=== PATIENT | male | born 1980 | race Caucasian/White ===

== ENCOUNTER → 2017-01-02 | Outpatient (CLI) | payer OTHER ==
[~2017-01-02] VITALS: Ht 172.7 cm; Wt 84.4 kg
[~2017-01-02] MED LIST: CEFAZOLIN 2000 MG/60 ML D5W IV SCH; FEXO1TAB58 PO; IBUP-1050 PO; LACTATED RINGER'S 1000ML 1,000 ML IV SCH; RXC5 PO; ULT50X PO
[2017-01-02 09:24] VITALS: Ht 172.7 cm; Wt 84.4 kg
--- NOTE | 2017-01-02 09:53 | PAT Medication Instructions ---
Service Date Jan 02, 2017. Current Home Medication List Fexofenadine-Pseudoephedrine (Brittany-D 24 Hour Allergy), 1 TAB PO PRN Ibuprofen (Advil), 400-600 MG PO PRN Medication Instructions For Your Scheduled Surgery - Hold the following medications the morning of surgery: Ibuprofen (Advil), 400-600 MG PO PRN Fexofenadine-Pseudoephedrine (Brittany-D 24 Hour Allergy), 1 TAB PO PRN Nothing to eat or drink after midnight If you have any questions please call us at [phone] or [phone] or [phone]
--- NOTE | 2017-01-02 10:43 | DIAGNOSTIC IMAGING REPORT ---
CHEST PREADMISSION(PA/LAT) HISTORY: Preop. COMPARISON: None. FINDINGS: The lungs are clear. Cardiac silhouette is normal in size. No pleural effusions. No pneumothorax. IMPRESSION: No acute process. Electronically signed by: Sushil Vela M.D. 01/02/2017 10:42 AM Dictated Date/Time: 01/02/2017 10:41 AM
[2017-01-02 11:09] LABS: BASO % 1.1 %; BASO ABS # 0.06 K/uL (0-0.2); COMPLETE YES; EOS % 12.6 %; HEMATOCRIT 48.4 % (42-52); IG% 0.2 %; LYMPH ABS # 1.74 K/uL (1.2-3.4); MEAN CELL VOLUME 87.1 fL (80-100); MEAN CORPUSCULAR HGB CONC 34.5 g/dl (32-36); MEAN PLATELET VOLUME 10.3 fL (7.4-10.4); MONO % 9.4 %; NEUT % 45.7 %; PLATELET COUNT 271 K/uL (130-400); RED BLOOD COUNT 5.56 M/uL (4.7-6.1); WHITE BLOOD COUNT 5.62 K/uL (4.8-10.8)
[2017-01-02 11:11] LABS: URINE APPEARANCE CLEAR (CLEAR); URINE BILIRUBIN NEG (NEG); URINE COLOR YELLOW; URINE NITRITE NEG (NEG); URINE SPECIFIC GRAVITY 1.026 (1.000-1.030); UROBILINOGEN NEG (NEG)
[2017-01-02 11:24] LABS: MANUAL MICROSCOPIC REQUIRED? NO; REVIEW REQ? NO
[2017-01-02 11:25] LABS: BUN/CREATININE RATIO 14.9 (10-20); CALCIUM 9.5 mg/dl (8.5-10.1); CREATININE 0.78 mg/dl (0.60-1.40); POTASSIUM 4.1 mmol/L (3.5-5.1)
== END | disposition home or self-care (01) ==
LOC: C.LAB 08:00 → EDSTATUS 01-14 14:40
PROVIDERS: ATTEND Orthopaedic Surgery Orthopaedic Surgery of the Spine
DX: Z01.812 Encounter for preprocedural laboratory examination (principal); Z01.810 Encounter for preprocedural cardiovascular examination

== ENCOUNTER 2017-05-14 10:14 | Inpatient (IN) | payer OTHER ==
[2017-05-06 11:25] VITALS: BMI 28.0
--- NOTE | 2017-05-06 11:51 | PAT Medication Instructions ---
Service Date May 06, 2017. Current Home Medication List Fexofenadine-Pseudoephedrine (Brittany-D 24 Hour Allergy), 1 TAB PO PRN Ibuprofen (Advil), 600 MG PO TID PRN for PRN Medication Instructions For Your Scheduled Surgery - Hold the following medications the morning of surgery: Fexofenadine-Pseudoephedrine (Brittany-D 24 Hour Allergy), 1 TAB PO PRN Ibuprofen (Advil), 600 MG PO TID PRN for PRN Nothing to eat or drink after midnight If you have any questions please call us at [phone] or [phone] or [phone]
[2017-05-06 12:08] LABS: BASO % 1.5 %; COMPLETE YES; EOS % 10.3 %; HEMATOCRIT 47.8 % (42-52); IG% 0.2 %; LYMPH % 26.6 %; LYMPH ABS # 1.73 K/uL (1.2-3.4); MEAN CELL VOLUME 86.3 fL (80-100); MEAN CORPUSCULAR HEMOGLOBIN 29.4 pg (25-34); MEAN CORPUSCULAR HGB CONC 34.1 g/dl (32-36); MEAN PLATELET VOLUME 9.7 fL (7.4-10.4); MONO % 6.9 %; NEUT % 54.5 %; PLATELET COUNT 277 K/uL (130-400); RED BLOOD COUNT 5.54 M/uL (4.7-6.1)
[2017-05-06 13:44] LABS: BUN/CREATININE RATIO 10.7 (10-20); CALCIUM 9.2 mg/dl (8.5-10.1); CREATININE 0.99 mg/dl (0.60-1.40); POTASSIUM 4.5 mmol/L (3.5-5.1)
[2017-05-06 14:17] LABS: URINE APPEARANCE SL CLOUDY (CLEAR); URINE BILIRUBIN NEG (NEG); URINE COLOR YELLOW; URINE NITRITE NEG (NEG); URINE PH 6.5 (4.5-7.5); UROBILINOGEN NEG (NEG)
[2017-05-06 14:28] LABS: MANUAL MICROSCOPIC REQUIRED? YES; REVIEW REQ? NO
[2017-05-06 14:43] LABS: URINE BACTERIA NEG (NEG); URINE MUCUS PRESENT (NONE PRSENT); URINE RBC 0-4 /hpf (0-4)
[2017-05-14] VITALS (9 sets, daily range): BP systolic 120–162; BP diastolic 71–100; PULSE 52–77; TEMP 36.5–36.9; O2SAT 92–100; Ht 172.7 cm; Wt 84.4 kg
[~2017-05-14] VITALS: Ht 172.7 cm; Wt 84.4 kg
[~2017-05-14 10:14] MED LIST changes: -RXC5 PO; -ULT50X PO
[2017-05-14] MEDS ORDERED: EpHEDrine SULFATE INJ 50 MG/ML AMP IV PRN (12:00)
[2017-05-14] MEDS ORDERED: MoRPHine SULFATE 10 MG/ML CARP/VIAL IV PRN (12:00)
[2017-05-14] MEDS ORDERED: ONDANSETRON INJ 2 MG/ML 2 ML VIAL IV PRN (12:00)
[2017-05-14] MEDS ORDERED: ATROPINE SULFATE 0.1 MG/ML 5ML SYR IV PRN (12:00)
[2017-05-14] MEDS ORDERED: MIDAZOLAM HCL 1 MG/ML 2ML VIAL ONE (12:10)
[2017-05-14] MEDS ORDERED: FENTANYL CITRATE INJ 50 MCG/1 ML 2 ML VIAL ONE ×4 (12:10→15:12)
--- NOTE | 2017-05-14 12:19 | History & Physical Bridge Note ---
H&P Re-Evaluation Bridge Note: I have examined the patient, reviewed the History & Physical and in the interval since the performance of the History & Physical I have noted the following changes of clinical significance: No changes noted
--- NOTE | 2017-05-14 12:20 | History and Physical ---
History & Physical Date May 14, 2017. Chief Complaint Chronic back pain History of Present Illness The patient is a 36 year old male with complaints of chronic back pain Additional History Hepatic Disease: No Endocrine Disorder: No Kidney Disease: No Hypertension: No Heart Disease: No Bleeding Tendencies: No Infectious Diseases: No Allergies Coded Allergies: No Known Allergies (Unverified , 05/14/17) Home Medications Scheduled Fexofenadine-Pseudoephedrine (Brittany-D 24 Hour Allergy), 1 TAB PO PRN Scheduled PRN Ibuprofen (Advil), 600 MG PO TID PRN for PRN Physical Examination Skin: warm/dry, no rash Eyes: normal inspection, EOMI, sclerae normal ENT: normal ENT inspection, pharynx normal Head: normocephalic, atraumatic Neck: supple, no adenopathy, trachea midline Respiratory/Chest: lungs clear, normal breath sounds, no respiratory distress Cardiovascular: regular rate, rhythm, no edema, no murmur Abdomen / GI: normal bowel sounds, non tender Back: normal inspection Extremities: normal inspection, normal range of motion Neurologic/Psych: no motor/sensory deficits, alert, normal reflexes, oriented x 3 Diagnosis Chronic back pain Plan of Treatment Lumbar decompression and fusion L5-S1
[2017-05-14] MEDS ORDERED: BACITRACIN 50000 UNIT VIAL ONE (12:59)
[2017-05-14] MEDS ORDERED: SODIUM CHLORIDE 0.9% PF 50 ML VIAL ONE (12:59)
[2017-05-14] MEDS ORDERED: BUPIVACAINE/EPINEPHRINE 0.5% MPF 1:200,000 10 ML VIAL ONE (12:59)
[2017-05-14] MEDS ORDERED: HYDROmorphone INJ 2 MG/ML SYR/VIAL ONE ×2 (13:42→14:57)
[2017-05-14] MEDS ORDERED: LIDOCAINE HCL 2% 2 ML VIAL (20MG/ML) ONE (14:15)
[2017-05-14] MEDS ORDERED: ONDANSETRON INJ 2 MG/ML 2 ML VIAL ONE (14:15)
[2017-05-14] MEDS ORDERED: PROPOFOL IV EMULSION 10 MG/ML 20 ML VIAL IV ONE (14:15)
[2017-05-14] MEDS ORDERED: METOCLOPRAMIDE HCL INJ 5 MG/ML 2 ML VIAL ONE (14:15)
[2017-05-14] MEDS ORDERED: DEXAMETHASONE SOD INJ 4 MG/ML VIAL ONE (14:15)
[2017-05-14] MEDS ORDERED: ROCURONIUM BROMIDE 10 MG/ML 5 ML VIAL ONE (14:15)
[2017-05-14] MEDS ORDERED: RANITIDINE HCL 25 MG/ML INJ ONE (14:15)
[2017-05-14] MEDS ORDERED: FLOSEAL HEMOSTATIC MATRIX 10ML TOP ONE (14:18)
[2017-05-14] MEDS: LACTATED RINGER'S 1000ML 1,000 ML IV SCH ×2 (14:55→21:34)
[2017-05-14] MEDS ORDERED: SODIUM CHLORIDE 0.9% 1000ML 1,000 ML IV SCH (14:55)
[2017-05-14] MEDS ORDERED: PROMETHAZINE HCL INJ 12.5 MG in SODIUM CHLORIDE 0.9% 50ML 50 ML IV PRN (15:00)
[2017-05-14] MEDS ORDERED: hydrOXYzine HCL 25 MG TAB PO PRN (15:00)
[2017-05-14] MEDS ORDERED: FAMOTIDINE 20 MG TAB PO PRN (15:00)
[2017-05-14] MEDS ORDERED: ACETAMINOPHEN IV 100 ML IV PRN (15:00)
[2017-05-14] MEDS ORDERED: ALUMINUM/MAGNESIUM SUSP 30 ML UDC PO PRN (15:00)
[2017-05-14] MEDS ORDERED: DO NOT ADMINISTER PNEUMOCOCCAL VACCINE PRN ×2 (15:00)
[2017-05-14] MEDS ORDERED: DO NOT ADMINISTER FLU VACCINE PRN ×3 (15:00)
[2017-05-14] MEDS ORDERED: ACETAMINOPHEN 500 MG TAB PO PRN (15:00)
[2017-05-14] MEDS ORDERED: METOCLOPRAMIDE HCL INJ 5 MG/ML 2 ML VIAL IV PRN (15:00)
[2017-05-14] MEDS ORDERED: SOD PHOSPHATE/SOD BIPHOSPHATE ENEMA 132 ML BTL PR PRN (15:00)
[2017-05-14] MEDS ORDERED: LORAZEPAM INJ 0.5 MG in SYRINGE 0 ML IV PRN (15:00)
[2017-05-14] MEDS ORDERED: NALOXONE HCL 0.4 MG/1 ML VIAL/CARP IV PRN ×2 (15:00)
[2017-05-14] MEDS ORDERED: BISACODYL 10 MG SUPP PR PRN (15:00)
--- NOTE | 2017-05-14 15:01 | [facility] Operative Report ---
Operative Report Operative Date May 14, 2017. Pre-Operative Diagnosis chronic back pain Post-Operative Diagnosis chronic back pain Procedure(s) Performed #1 lumbar decompression L5-S1. #2 posterior spinal fusion L5 this one. #3 placement posterior instrumentation L5-S1. #4 interbody fusion L5-S1. #5 placement peek cage 15 x 26 mm L5-S1. #6 placement of locally harvested morcellized autograft in the posterior lateral gutters. #7 placement of fibrinet and osteoporosis trucks in the interbody space and posterior lateral gutters. Surgeon Dr. Parris Bar Ip Counsel Surgeon(s) Osvaldo Pack PA-C Estimated Blood Loss 100mL Findings Degenerative disc disease Specimens none per surgeon Description of Procedure Patient was met with preoperatively case discussed all questions are dressed with a point patient was taken back to the operative suite and after undergoing successful intubation placed in the prone position on the Juan Ramon table on top Ander frame. All bony promises well-padded eyes inspected to ensure there is no external pressure placed upon them. Lumbar spines prepped and draped in the normal sterile fashion. Sharp dissection with the assistance of Bovie cautery performed onto an exposing the lamina and transverse processes of L5 and the sacral alar bilaterally. From a caudal to cephalad fashion complete laminectomy of L5 was performed. And then placed pedicle screws in L5-S1 levels bilaterally with assistance of fluoroscopy. Through a transforaminal approach on the right a complete discectomy was performed and plate created subcortical bleeding bone and a 15 x 26 motor peek cage filled with fibrinet and osteo-strokes tapped in position. The rods and compressed and locked and final position. The transverse processes of L5 sacral alar burred to subcortical bleeding bone. Remaining bone graft was placed in the posterior gutters. A 15 round ANJEL drain inserted. Incision was then closed with 1 Vicryl in the fascia 2-0 Vicryl subcutaneously for Monocryl for final skin closure. Patient awakened taken to PACU stable condition. Please note Maryjane Squires present throughout the entire procedure involved in patient positioning complex portions of the procedure and final skin closure. I attest to the content of the Intraoperative Record and any orders documented therein. Any exceptions are noted below.
[2017-05-14] MEDS ORDERED: ESMOLOL HCL 10 MG/ML 10 ML VIAL ONE (15:05)
[2017-05-14] MEDS ORDERED: KETOROLAC TROMETHAMINE 30 MG/ML VIAL ONE (15:05)
[2017-05-14] MEDS ORDERED: GLYCOPYRROLATE INJ 0.2 MG/ML VIAL ONE (15:05)
[2017-05-14] MEDS ORDERED: NEOSTIGMINE METHYLSULFATE 1 MG/ML 10ML VIAL ONE (15:05)
--- NOTE | 2017-05-14 15:14 | DIAGNOSTIC IMAGING REPORT ---
LUMBAR SPINE 2 OR 3 VIEW CLINICAL HISTORY: L5-S1 DECOMPRESSION, LAMINECTOMY, DISCECTOMY pain TECHNIQUE: Image intensifier COMPARISON STUDY: None FINDINGS: Findings consistent with a posterior laminectomy and fusion at L5-S1 IMPRESSION: Posterior laminectomy and fusion at L5-S1. Alignment is anatomic. The above report was generated using voice recognition software. It may contain grammatical, syntax or spelling errors. Electronically signed by: Ra Sadler M.D. 05/14/2017 3:13 PM Dictated Date/Time: 05/14/2017 3:13 PM
[2017-05-14] MEDS: FENTANYL CITRATE INJ 50 MCG/1 ML 2 ML VIAL IV PRN ×3 (15:40→16:03)
[2017-05-14] MEDS: HYDROmorphone HCL 0.5MG/ML 50 ML CASSETTE IV PRN ×3 (15:45→22:49)
--- NOTE | 2017-05-14 16:28 | Anesthesiology Progress Note ---
Anesthesia Post Op Note Date & Time May 14, 2017 at 16:28 Vital Signs Vital Signs Past 12 Hours Date Time Temp Pulse Resp B/P (MAP) Pulse Ox O2 Delivery O2 Flow Rate FiO2 05/14/17 16:24 47 12 100 05/14/17 16:24 48 12 05/14/17 16:21 129/81 05/14/17 16:19 51 14 05/14/17 16:19 53 14 100 05/14/17 16:18 36.2 53 16 138/87 100 Mask 4 05/14/17 16:16 138/87 05/14/17 16:14 61 15 100 05/14/17 16:14 63 15 05/14/17 16:11 139/88 05/14/17 16:09 49 12 100 05/14/17 16:09 49 12 05/14/17 16:06 135/80 05/14/17 16:04 48 11 100 05/14/17 16:04 49 11 05/14/17 16:01 137/89 05/14/17 15:59 51 16 05/14/17 15:59 54 16 100 05/14/17 15:56 138/94 05/14/17 15:54 48 16 100 05/14/17 15:54 50 16 05/14/17 15:51 139/87 05/14/17 15:49 48 10 100 05/14/17 15:49 48 10 05/14/17 15:46 138/91 05/14/17 15:44 48 13 05/14/17 15:44 48 13 100 05/14/17 15:41 124/89 05/14/17 15:39 49 15 05/14/17 15:39 48 15 100 05/14/17 15:36 129/80 05/14/17 15:34 49 13 05/14/17 15:34 49 13 100 05/14/17 15:31 139/90 05/14/17 15:29 55 13 100 05/14/17 15:29 54 13 05/14/17 15:26 135/90 05/14/17 15:24 59 13 05/14/17 15:24 59 13 99 05/14/17 15:21 136/84 05/14/17 15:19 59 17 05/14/17 15:19 60 17 99 05/14/17 15:16 125/86 05/14/17 15:15 139/92 05/14/17 15:14 36.3 54 14 139/92 99 Mask 10 05/14/17 11:23 36.8 55 18 124/100 98 Room Air Notes Mental Status: alert / awake / arousable, participated in evaluation Pt Amnestic to Procedure: Yes Nausea / Vomiting: adequately controlled Pain: adequately controlled Airway Patency, RR, SpO2: stable & adequate BP & HR: stable & adequate Hydration State: stable & adequate Anesthetic Complications: no major complications apparent
[2017-05-14] MEDS: LORAZEPAM 0.5 MG TAB PO PRN (17:14)
[2017-05-14] MEDS: DEXAMETHASONE INJ 6 MG in SYRINGE 0 ML IV SCH (17:56)
[2017-05-14] MEDS: MAGNESIUM HYDROXIDE SUSP 30 ML UDC PO PRN (21:33)
[2017-05-14] MEDS: DOCUSATE SODIUM/SENNA 50/8.6MG TAB PO SCH (21:33)
[2017-05-14] MEDS: CEFAZOLIN IV 2,000 MG in DEXTROSE 5% 50ML 50 ML IV SCH (21:34)
[2017-05-15] VITALS (8 sets, daily range): BP systolic 114–148; BP diastolic 70–86; PULSE 50–79; TEMP 36.4–36.9; O2SAT 92–99
[2017-05-15] MEDS: DEXAMETHASONE INJ 6 MG in SYRINGE 0 ML IV SCH ×2 (01:31→10:48)
[2017-05-15] MEDS: LORAZEPAM 0.5 MG TAB PO PRN (01:31)
[2017-05-15] MEDS: LACTATED RINGER'S 1000ML 1,000 ML IV SCH (04:47)
[2017-05-15 05:47] LABS: BASO % 0.1 %; BASO ABS # 0.01 K/uL (0-0.2); COMPLETE YES; HEMATOCRIT 41.9 % (42-52); IG% 0.3 %; LYMPH % 6.6 %; MEAN CELL VOLUME 85.7 fL (80-100); MEAN CORPUSCULAR HEMOGLOBIN 30.1 pg (25-34); MEAN CORPUSCULAR HGB CONC 35.1 g/dl (32-36); MEAN PLATELET VOLUME 9.9 fL (7.4-10.4); MONO % 2.2 %; NEUT % 90.8 %; PLATELET COUNT 290 K/uL (130-400); RED BLOOD COUNT 4.89 M/uL (4.7-6.1); WHITE BLOOD COUNT 15.26 K/uL (4.8-10.8)
[2017-05-15] MEDS: CEFAZOLIN IV 2,000 MG in DEXTROSE 5% 50ML 50 ML IV SCH (05:54)
[2017-05-15] MEDS ORDERED: HYDROmorphone INJ 1 MG/ML SYR IV PRN (06:00)
[2017-05-15] MEDS ORDERED: HYDROmorphone INJ 0.5 MG/0.5 ML SYR IV PRN (06:00)
[2017-05-15] MEDS ORDERED: DC PCA ONE (06:00)
[2017-05-15 06:12] LABS: BUN/CREATININE RATIO 9.7 (10-20); CALCIUM 9.1 mg/dl (8.5-10.1); CREATININE 0.87 mg/dl (0.60-1.40); POTASSIUM 4.2 mmol/L (3.5-5.1)
[2017-05-15] MEDS ORDERED: NURSING VERBAL MED ORDER ONE (06:45)
[2017-05-15] MEDS: OXYCODONE HCL IR 5 MG TAB (IMMEDIATE RELEASE) PO PRN ×3 (09:12→19:29)
[2017-05-15] MEDS: ONDANSETRON INJ 2 MG/ML 2 ML VIAL IV PRN (09:13)
[2017-05-15] MEDS ORDERED: RXC5 PO (09:47)
--- NOTE | 2017-05-15 09:48 | Discharge Instructions ---
Discharge Instructions Date of Service May 15, 2017. Admission Reason for Admission: Lumbar Spinal Stenosis Discharge Discharge Diagnosis / Problem: stenosis Discharge Goals Goal(s): Improve function Activity Recommendations Activity Limitations: per Instructions/Follow-up section . Instructions / Follow-Up Instructions / Follow-Up ACTIVITY RECOMMENDATIONS: SELF CARE INSTRUCTIONS AFTER THORACIC/LUMBAR FUSIONS 1. You may walk to your tolerance. It is good exercise for your legs and back. Expect some back and intermittent leg aches and pains. 2. You may perform "counter-top" level activities (make a sandwich, roseline with a project, etc.). 3. No bending or lifting of more than 10 pounds or back twisting of any nature (roll like a log when turning in bed). 4. You may ride in a car for 20-30 minutes at a time. No driving until after your first visit with your doctor. 5. Frequent changes of position and restricting sitting to 30 minutes at a time will help limit the amount of back spasms and stiffness you may experience. 6. You may discontinue the use of ambulatory aids (cane, crutches, etc.) once your strength and confidence allow. 7. You may insurance loss control surveyor the shower and let water strike your incision when you arrive home at least once daily. Do not take a tub bath, sit in a hot tub or go into a swimming pool until after your first recheck in the office. SPECIAL CARE INSTRUCTIONS: VERY IMPORTANT TO READ AND REVIEW A. Your surgical incision has been closed with a cosmetic suture under the skin that will dissolve in about 6 weeks. In 14 days, you can use a pair of clean scissors and cut the suture that is left outside of the skin at the ends of your incision. 1. The small skin tapes can be removed 7 days after surgery if they have not fallen off by that point. 2. You may keep the wound open to air as much as possible to promote healing after post-op day number 5 unless told otherwise by your doctor. 3. If you think the wound looks like it is becoming infected (redness or worsening drainage) and/or you are experiencing fever, chill or worsening back pain and muscle spasms, contact the office so that we may evaluate you as soon as possible. B. Complications are uncommon, but please contact us if you have any signs or symptoms of: 1. wound infection (fever higher than 102.5 degrees F, redness, separation of wound, drainage, or increasing pain from the incision) 2. blood clots in legs (pain, swelling, redness and warmth in legs) 3. urinary tract infection (fever higher than 102.5 degrees F, burning upon urination or increased frequency of urination) 4. nerve problems (inability to walk on your toes or heels, numbness, loss of bowel or bladder control) 5. any other symptoms that concern you C. Please call the office at if you have any concerns or questions about your operation or recovery. D. No smoking! Smoking drastically decreases the chance of a solid fusion. E. Do not take any anti-inflammatory medications (Indocin, Advil, Motrin, Aspirin, Naprosyn, etc.) as these may inhibit the chance of a solid fusion. Tylenol is okay to take for pain. MANAGING PAIN AFTER SPINAL SURGERY 1. Narcotic medication is intended for short-term use and will be provided for surgical pain. Surgical pain usually lasts for a period of 4-6 weeks. Narcotic medication includes Percocet, Vicodin, Darvocet, Tylenol #3 or Lortab. 2. Longer-term pain is more appropriately treated with non-narcotic medication such as Tylenol ES. 3. Muscle spasm is not appropriately treated with narcotics. Muscle relaxers such as Soma, Flexeril or Skelaxin can be used along with Tylenol ES. 4. Remember that we all live with some "aches and pains". This is not unusual or uncommon after an injury or as we get older. a. Back pain is expected and may include muscle spasms for 4 to 6 weeks after surgery. The pain should gradually improve. If the pain worsens for no apparent reason, please contact the office. b. Intermittent leg pain may also be experienced and should not be concerned about unless it worsens for no apparent reason. If so, please contact the office. 5. We will provide appropriate medication within the normal guidelines of their prescribed use. We will also be very cautious and aware of potential abuse and extended duration of patients' medication needs. a. Pain medications are for your comfort and to assist with sleep and rest so that the tissue can heal. They are not provided in order to return to normal activity and should not be used through the day. To do so or worsening pain at night can result from ongoing tissue damage and development of tolerance to the prescribed medicine. 6. Please allow 2-3 days to process refills. Prescriptions will not be mailed but must be picked up at the office. FOLLOW UP VISIT: Keep your scheduled follow-up appointment. Any questions, please call the office at . Current Hospital Diet Patient's current hospital diet: Regular Diet Discharge Diet Recommended Diet: Regular Diet Procedures Procedures Performed: #1 lumbar decompression L5-S1. #2 posterior spinal fusion L5 this one. #3 placement posterior instrumentation L5-S1. #4 interbody fusion L5-S1. #5 placement peek cage 15 x 26 mm L5-S1. #6 placement of locally harvested morcellized autograft in the posterior lateral gutters. #7 placement of fibrinet and osteoporosis trucks in the interbody space and posterior lateral gutters. Pending Studies Studies pending at discharge: no Medical Emergencies . Who to Call and When: Medical Emergencies: If at any time you feel your situation is an emergency, please call 911 immediately. . Non-Emergent Contact Non-Emergency issues call your: Primary Care Provider . "Provider Documentation" section prepared by Wagner Bar. . VTE Core Measure Inpt VTE Proph given/why not?: Hilda Horton, SCD's
[2017-05-15] MEDS: KETOROLAC TROMETHAMINE 30 MG/ML VIAL IV PRN ×2 (17:04→23:43)
--- NOTE | 2017-05-15 17:23 | Progress Note ---
Progress Note Date of Service May 15, 2017. Progress Note Pain is controlled. Denies a leg pain. Struggle with a bit of nausea with activity associated with the pain medication. On exam vital signs are stable strength is intact. Assessment status post lumbar depression fusion replant this time we anticipate continued progress and possibly home tomorrow.
[2017-05-15] MEDS: MAGNESIUM HYDROXIDE SUSP 30 ML UDC PO PRN (20:19)
[2017-05-15] MEDS: TRAMADOL HCL 50 MG TAB PO PRN (20:20)
[2017-05-15] MEDS: DOCUSATE SODIUM/SENNA 50/8.6MG TAB PO SCH (20:20)
[2017-05-16] MEDS: TRAMADOL HCL 50 MG TAB PO PRN ×2 (04:59→09:15)
[2017-05-16] MEDS ORDERED: POLYETHYLENE (MIRALAX) 17 GM PACK PO SCH (06:00)
[2017-05-16 07:12] VITALS: BP 117/75; PULSE 54; TEMP 36.5; O2SAT 98
[2017-05-16] MEDS: MAGNESIUM HYDROXIDE SUSP 30 ML UDC PO PRN (09:15)
--- NOTE | 2017-05-16 09:55 | Discharge Summary ---
Orthopedic Discharge Summary Admission Date/Reason May 14, 2017 at 11:35 Lumbar Spinal Stenosis. Discharge Date/Disposition May 16, 2017 Home Diagnosis Principal Diagnosis: Chronic back pain Admission Physical Exam As per Admitting History & Physical. Hospital Course Patient underwent lumbar decompression fusion tolerated this well was taken to the orthopedic floor postoperatively. Postoperatively he progressed appropriately ANJEL drain decreasing nicely and subsequently discharged home. Discharge orders and instructions found on the chart for further review. Discharge Instructions Please refer to the electronic Patient Visit Report (Discharge Instructions) for additional information.
[2017-05-16] MEDS ORDERED: TRAMADOL HCL 50 MG TAB PO PRN (10:00)
[2017-05-16] MEDS ORDERED: ULT50X PO (10:00)
[2017-05-16 10:04] VITALS: BP 117/75; PULSE 54; TEMP 36.5; O2SAT 98
[2017-05-16] MEDS: ONDANSETRON INJ 2 MG/ML 2 ML VIAL IV PRN (10:10)
[2017-05-16] MEDS: LORAZEPAM 0.5 MG TAB PO PRN (12:10)
== END 2017-05-16 13:19 | disposition home or self-care (01) | DRG 460 ==
LOC: C.ACU 10:14 → C.3E 11:35 → ENRESERV 16:24
PROVIDERS: ADMIT Orthopaedic Surgery Orthopaedic Surgery of the Spine; ATTEND Orthopaedic Surgery Orthopaedic Surgery of the Spine
PROC: 0SG00A1 (ICD-10-PCS; principal; 2017-05-14 12:20)
PROC: 0ST20ZZ Resection of Lumbar Vertebral Disc, Open Approach (ICD-10-PCS; principal; 2017-05-14 12:20)
DX: M48.06 Spinal stenosis, lumbar region (principal)

== ENCOUNTER 2021-08-27 16:22 | Observation (INO) ==
--- NOTE | 2021-08-27 16:46 | Emergency Department Note ---
Impression & Plan Cervical radiculopathy ED Provider Note CHIEF COMPLAINT: Neck pain, numbness/tingling HISTORY OF PRESENT ILLNESS: Jhon García is a 41 year old male with history of lumbar stenosis s/p spinal fusion with Dr. Bar as well as cervical degenerative disc disease who presents to the Emergency Department for evaluation of an exacerbation of pain to his neck with associated numbness/tingling and weakness in his bilateral arms which has been persistent x 2 weeks and became much worse over the past 2 days. The patient states the he initially developed similar symptoms about 6 months ago and has been following with Dr. Bar of Orthopedic spine. He recently had an MRI last month for surgi cecil planning. He opted not to try injections as he states that he never had success with that in his lumbar spine when he tried it in the past. Currently, he rates his discomfort as a 7/10 which worsens with movement and has not been relieved after taking Tylenol and Diclofenac. The patient denies suffering recent falls or trauma and he has not participated in strenuous activity or heavy lifting prior to the onset of his symptoms. He does note that he also developed numbness/tingling in his bilateral feet over the past few days but he otherwise denies saddle paresthesias, loss of continence of his bowels/bladder or weakness in his bilateral legs. He also denies recent fevers/chills, cough, chest pain, shortness of breath, abdominal pain, nausea, vomiting or diarrhea. The patient states that he did call Dr. Bar's office regarding his symptoms and was referred to the emergency department for further evaluation today. REVIEW OF SYSTEMS: 10 systems were reviewed and were negative unless otherwise stated in HPI as above PHYSICAL EXAM: VITALS: Vitals are noted on the nurse's note and reviewed by myself. Vital signs stable. General: Resting in bed, no acute distress Neck: Tender to palpation of the midline cervical spine and perispinal musculature radiating into the bilateral scapula, ROM intact but limited secondary to discomfort Resp: Good inspiratory effort on room air, lung sounds clear bilaterally CV: Regular rate and rhythm, peripheral pulses palpated Back: No midline tenderness to the thoracic spine, no midline tenderness to the lumbar spine, no obvious step-offs or deformities Abd: Soft, non-distended, non-tender MSK: No obvious long bone deformities, no tenderness to palpation of the arms or legs Neuro: Awake, alert and oriented x 3. Perceived numbness/tingling radiating down the left shoulder, arm and entire hand. Perceived numbness/tingling radiating down the right shoulder and arm, spares the hand. Termite Exterminator Helper strength 4/5 bilaterally, otherwise 5/5 throughout BUE. Perceived numbness/tingling to the bilateral feet, strength 5/5 throughout BLE. Differential diagnosis includes fracture, dislocation, subluxation, degenerative disc disease, cervical radiculopathy, spinal cord injury among others were considered. EMERGENCY DEPARTMENT COURSE: Physical exam and history were performed. Nursing notes, EMR, and medication list were personally reviewed. Patient appears to have an exacerbation of pain to his neck with associated numbness/tingling and weakness to his bilateral arms which has been persistent x2 weeks and became much worse over the past 2 days. Of note, the patient does have history of cervical degenerative disc disease and has been following with Dr. Bar of orthopedic spine. He recently had an MRI for surgical planning last month, though this was not available in his chart to view. The patient did call Dr. Bar's office regarding his symptoms and was referred to the emergency department for further evaluation. Please see exam as above. Symptoms are concerning for cervical radiculopathy. IV access was established and he was given Decadron 10 mg as well as Dilaudid 1 mg. I did call Dr. Bar's office and spoke to the advanced practitioner. He was aware of the patient and agreed to admit him to Dr. Bar service for ongoing management and possible surgery tomorrow. They did not recommend any additional imaging at this time. Upon reevaluation, the patient was resting more comfortably after receiving the medications. I did inform him on my discussion with Dr. Bar's team. The patient verbalizes understanding and agreement with this treatment plan. The chart was completed utilizing [employer] Speech Voice Recognition Software. Grammatical errors, random word insertions, pronoun errors, and incomplete sentences are an occasional consequence of this system due to software limitations, ambient noise, and hardware issues. Any formal questions or concerns about the content, text, or information contained within the body of this dictation should be directly addressed to the provider for clarification. Past Med/Surg History Medical History Chronic back pain History of COVID-19 Dx 09/2020 > symptoms at time of: mild headache, fatigue, loss of taste/smell > resolved History of panic attacks Last episode 2 years ago Hypertension Lumbar stenosis with neurogenic claudication Surgical History History of abdominal surgery As ("valve would not close") History of arthroscopy of left shoulder History of arthroscopy of right shoulder History of lumbar spinal fusion History of open reduction and internal fixation (ORIF) procedure right femur fx repair (+ harware) History of tonsillectomy History of wisdom tooth extraction Family History Other No family history of adverse response to anesthesia Social History Smoking Status: Never smoker Second Hand Exposure: No; Hx Alcohol Use: Yes Alcohol type: beer Hx Substance Use: No Preferred Language: [place] Communication Ability: Effective Audograph Operator Required: No Beliefs That Will Affect Care: None Current Living Situation: Family Current Living Situation Comment: Lives with and daughter Feels Safe at Home: Yes Safety Concerns: Feels Safe At This Time Assistive Devices: None Allergies Allergies Allergy/AdvReac Type Severity Reaction Status Date / Time No Known Allergies Allergy Verified 08/27/21 19:08 Home Meds Home Medications Medication Instructions Recorded Confirmed acetaminophen 500 mg capsule 1,000 mg PO BID 08/07/21 08/27/21 bisoprolol 5 1 tab PO HS 08/07/21 08/27/21 mg-hydrochlorothiazide 6.25 mg tablet cholecalciferol (vitamin D3) 125 10,000 unit PO HS 08/07/21 08/27/21 mcg (5,000 unit) tablet (Vitamin D3) diclofenac sodium 75 mg 75 mg PO HS 08/07/21 08/27/21 tablet,delayed release fexofenadine 180 mg tablet 180 mg PO HS 08/07/21 08/27/21 (Brittany Allergy) Results & Data (ED) Vital Signs Vital Signs - 24 hr 08/27/21 16:37 Temperature 36.8 C Temperature Source Temporal Artery Scan Pulse Rate 68 Respiratory Rate 18 Blood Pressure 127/76 Blood Pressure Mean 93 Pulse Oximetry 97 Oxygen Delivery Method Room Air Sepsis Recent Fever Within 48 Hours No Sepsis New/Unexplained Change in Mental Status No Sepsis Action Taken by Nursing No Action Required Administered Medications Lactated Ringer's (Lr) 1,000 mls @ 100 mls/hr IV .Q10H DINA Stop: 09/26/21 19:14 Last Admin: 08/27/21 20:08 Dose: 100 mls/hr Documented by: [id number] Discontinued Medications Cyclobenzaprine HCl (Cyclobenzaprine Hcl 10 Mg Tab) 10 mg PO NOW STA Stop: 08/27/21 17:15 Last Admin: 08/27/21 17:36 Dose: Not Given Documented by: [id number] Dexamethasone Sodium Phosphate (DexamethasonePf 10 Mg/Ml Vial) 10 mg IV NOW ONE Stop: 08/27/21 17:14 Last Admin: 08/27/21 17:36 Dose: 10 mg Documented by: [id number] Hydromorphone HCl (Hydromorphone Inj 1 Mg/Ml Syringe) 1 mg IV NOW STA Stop: 08/27/21 17:14 Last Admin: 08/27/21 17:36 Dose: 1 mg Documented by: [id number] Discharge Plan Visit Data Chief Complaint: Neck Injury/Pain Stated Complaint: NECK PAIN, ARM AND HAND NUMBNESS ED Provider: Garfield Quiñones ED Midlevel Provider: Ana Luisa De La Torre Discharge Problem: Cervical radiculopathy Patient Disposition: Admitted As Inpatient Discharge Instructions Interventions: ED Discharge Assessment Last Done: 08/27/21 19:35
[2021-08-27] MEDS ORDERED: dexAMETHasone**PF** 10 MG/ML VIAL IV ONE (17:13)
[2021-08-27] MEDS ORDERED: HYDROmorphone INJ 1 MG/ML SYRINGE IV STA (17:13)
[2021-08-27] MEDS ORDERED: CYCLOBENZAPRINE HCL 10 MG TAB PO STA (17:14)
[2021-08-27] MEDS ORDERED: HYDROmorphone INJ 0.5 MG/0.5 ML SYR IV PRN (19:05)
[2021-08-27] MEDS ORDERED: ONDANSETRON INJ 2 MG/ML 2 ML VIAL IV PRN (19:07)
[2021-08-27] MEDS: LACTATED RINGER'S 1,000 ML IV SCH (20:08)
[2021-08-28] MEDS: LACTATED RINGER'S 1,000 ML IV SCH ×3 (05:34→18:28)
--- NOTE | 2021-08-28 08:05 | History & Physical Report ---
Date of Service August 28, 2021 Assessment & Plan (1) Cervical radiculopathy: Plan: MRI demonstrates severe neuroforaminal stenosis C5-6. Patient demonstrates progressive neurological decline and severe pain. Recomment urgent ACDF C5-6 Admission and Anticipated Discharge Date Admission Date: August 27, 2021 History of Present Illness Chief Complaint: neck pain with arm pain and weakness Primary Care Provider: Wagner Raphael 41 male with marked decline in function with pain and numbness in b/l arms. Allergies Allergy/AdvReac Type Severity Reaction Status Date / Time No Known Allergies Allergy Verified 08/27/21 19:08 Home Medications Medication Instructions Recorded Confirmed Type acetaminophen 500 mg capsule 1,000 mg PO BID 08/07/21 08/27/21 History bisoprolol 5 1 tab PO HS 08/07/21 08/27/21 History mg-hydrochlorothiazide 6.25 mg tablet cholecalciferol (vitamin D3) 125 10,000 unit PO HS 08/07/21 08/27/21 History mcg (5,000 unit) tablet (Vitamin D3) diclofenac sodium 75 mg 75 mg PO HS 08/07/21 08/27/21 History tablet,delayed release fexofenadine 180 mg tablet 180 mg PO HS 08/07/21 08/27/21 History (Brittany Allergy) Past Med/Surg History Medical History Chronic back pain History of COVID-19 Dx 09/2020 > symptoms at time of: mild headache, fatigue, loss of taste/smell > resolved History of panic attacks Last episode 2 years ago Hypertension Lumbar stenosis with neurogenic claudication Surgical History History of abdominal surgery As infant ("valve would not close") History of arthroscopy of left shoulder History of arthroscopy of right shoulder History of lumbar spinal fusion History of open reduction and internal fixation (ORIF) procedure right femur fx repair (+ harware) History of tonsillectomy History of wisdom tooth extraction Family History Other No family history of adverse response to anesthesia Social History Smoking Status: Never smoker Second Hand Exposure: No; Hx Alcohol Use: Yes Alcohol type: beer Hx Substance Use: No Preferred Language: Palauan Communication Ability: Effective Escrow Manager Required: No Beliefs That Will Affect Care: None Current Living Situation: Family Current Living Situation Comment: Lives with and daughter Feels Safe at Home: Yes Safety Concerns: Feels Safe At This Time Assistive Devices: None Physical Exam Physical Exam: Marked Spurling's sign b/l. 4-/5 b/l biceps with sensory deficits Results & Data ([facility]) Vital Signs (Past 12 Hours) Vital Signs Temp Pulse Pulse Resp BP Pulse Ox 08/28/21 07:06 36.5 C 50 L 16 118/66 97 08/27/21 23:45 36.5 C 75 15 137/79 96 08/27/21 20:04 65 128/80 Code Status & VTE Plan VTE Prophylaxis Plan VTE Prophylaxis will be ordered: No
[2021-08-28] MEDS ORDERED: fentaNYL citrate 100 MCG/2 ML VIAL ONE ×3 (12:49→14:26)
[2021-08-28] MEDS ORDERED: MIDAZOLAM HCL 1 MG/ML 2ML VIAL ONE (12:49)
--- NOTE | 2021-08-28 13:28 | History & Physical Bridge Note ---
Date of Service August 28, 2021 History & Physical Bridge Note I have examined the patient, reviewed the History & Physical and in the interval since the performance of the History & Physical I have noted the following changes of clinical significance: no changes noted Anterior cervical discectomy fusion C5-C6
[2021-08-28] MEDS ORDERED: PROPOFOL IV EMULSION 10 MG/ML 20 ML VIAL IV ONE (13:45)
[2021-08-28] MEDS ORDERED: LIDOCAINE 2% 2 ML VIAL/AMP(20MG/ML) INFIL ONE (13:45)
[2021-08-28] MEDS ORDERED: DEXAMETHASONE SOD INJ 4 MG/ML VIAL ONE (13:45)
[2021-08-28] MEDS ORDERED: ROCURONIUM BROMIDE 10 MG/ML 5 ML VIAL IV ONE ×2 (13:45→14:33)
[2021-08-28] MEDS ORDERED: SUCCINYLCHOLINE CHLORIDE 20 MG/ML 10 ML VIAL IV ONE (13:45)
[2021-08-28] MEDS ORDERED: ONDANSETRON INJ 2 MG/ML 2 ML VIAL ONE ×2 (13:45→14:25)
[2021-08-28] MEDS ORDERED: FLOSEAL HEMOSTATIC MATRIX 10ML TOP ONE (14:02)
[2021-08-28] MEDS ORDERED: ceFAZolin 2000MG 2,000 MG/15 ML SYR IV ONE (14:03)
--- NOTE | 2021-08-28 15:14 | Operative Report ---
Post Operative Report Pre & Post Diagnosis Operation Date: 08/28/21 09:40 Pre-Op Diagnosis: Cervical radiculopathy C5-C6 Post-Op Diagnosis: Cervical radiculopathy C5-C6 I identified the patient and participated in the time-out.: Yes Procedure Operation Date: 08/28/21 09:40 Actual Procedures #1 anterior cervical discectomy with bilateral foraminotomies C5-C6. #2 intracervical arthrodesis C5-C6. #3 placement of 8 mm spiral cage filled with a Surgeon Wagner Bar, Hammer Repairer Maryjane Squires Estimated Blood Loss 10 Findings Consistent with Post-Op Diagnosis Specimens None Indications This is a 41-year-old male presents with marked steady decline in status with weakness affecting upper extremities. Subsequent he is here for urgent surgery. Description of Procedure Patient was met with identified informed consent obtained. Patient was then taken to the operative suite underwent ablation placed in supine position injectable head Matson head soft sugar operator. All bony prominences well-padded eyes inspected to ensure no external pressure placed upon the. This point the anteri or cervical spine was prepped and draped in a sterile fashion. With the assistance of fluoroscopy identified the C5-6 disc base and a transverse incision was placed on the right anterior aspect of the cervical spine overlying this region. Blunt dissection with the assistance of bipolar electrocautery was performed down to and exposing the anterior cervical spine at C5-C6. Self- retaining retractors placed. I verified my position with fluoroscopy. Then performed a complete discectomy of C5-C6 out to the uncovertebral joints bilaterally. Ellington distraction pins utilized to assist in visualization. Removed all posterior fibers longitudinal ligament bilateral foraminotomies performed for complete decompression. The endplates then burred to subcortical being bone and a 8 mm spiral cage filled with I factor tapped in position. Distracting apparatus was removed and a 5 complete screws applied with the assistance of fluoroscopy. The incision was then copiously irrigated explored to ensure no damage to surrounding structures or remaining bleeding. 10 round ANJEL drain inserted. The incision was then closed with 2 Vicryl in a fashion of 4 Monocryl for final skin closure. Steri-Strip sterile dressings placed. Patient waken taken PACU stable condition. Please note spinal cord monitoring was utilized at the procedure no changes noted. Lastly Maryjane Squires was present at the entire procedure and while the patient positioning complex portions of the surgery and final skin closure. I attest to the content of the Intraoperative Record and any orders documented therein. Any exceptions are noted below.
[2021-08-28] MEDS ORDERED: NEOSTIGMINE METHYLSULFATE 1 MG/ML 10ML VIAL ONE (15:29)
[2021-08-28] MEDS ORDERED: GLYCOPYRROLATE 0.2 MG/ML VIAL ONE ×2 (15:29→16:28)
[2021-08-28] MEDS ORDERED: fentaNYL citrate 100 MCG/2 ML VIAL IV PRN (15:32)
[2021-08-28] MEDS ORDERED: ONDANSETRON INJ 2 MG/ML 2 ML VIAL IV PRN ×2 (15:32→18:08)
[2021-08-28] MEDS ORDERED: ePHEDrine sulfate 50 MG/ML AMP IV PRN (15:32)
[2021-08-28] MEDS ORDERED: ATROPINE SULFATE 0.1 MG/ML 10ML SYR IV PRN (15:32)
--- NOTE | 2021-08-28 15:36 | Fluoroscopy Report ---
INTRAOPERATIVE RADIOGRAPHS CLINICAL HISTORY: C5-C6 spinal fusion. Fluoroscopy time: 9 seconds. FINDINGS: 2 spot fluoroscopic views of the cervical spine are presented. There has been discectomy at C5-C6 with anterior fusion at this level. The orthopedic hardware appears intact. An endotracheal tu be is in place. A surgical drain is noted. IMPRESSION: Intraoperative images of the cervical spine as above. Electronically signed by: Trevor Garcia M.D. 08/28/2021 3:34 PM
[2021-08-28] MEDS: HYDROmorphone INJ 0.5 MG/0.5 ML SYR IV SCH ×11 (16:04→19:23)
[2021-08-28] MEDS ORDERED: HYDROmorphone INJ 0.5 MG/0.5 ML SYR IV STA (16:14)
[2021-08-28] MEDS ORDERED: KETOROLAC 30 MG/ML VIAL ONE (17:10)
[2021-08-28] MEDS ORDERED: KETOROLAC TROMETHAMINE 15 MG/ML VIAL IV ONE (17:10)
[2021-08-28] MEDS ORDERED: traMADol HCL 50 MG TABLET PO PRN (18:08)
[2021-08-28] MEDS ORDERED: LORazepam 0.5 MG TAB PO PRN (18:08)
[2021-08-28] MEDS ORDERED: PROMETHAZINE HCL 12.5 MG in SODIUM CHLORIDE 0.9% 50 ML IV PRN (18:08)
[2021-08-28] MEDS ORDERED: ALUMINUM/MAGNESIUM SUSP 30 ML UDC PO PRN (18:08)
[2021-08-28] MEDS ORDERED: LORazepam 0.5 MG/1 ML VIAL IV PRN (18:08)
[2021-08-28] MEDS ORDERED: dexAMETHasone 8 MG in SYRINGE 0 ML IV PRN (18:08)
[2021-08-28] MEDS ORDERED: bisacodyL 10 MG SUPP PR PRN (18:08)
[2021-08-28] MEDS ORDERED: RACEPINEPHRINE 2.25% NEBU SOLN 0.5 ML VIAL INH PRN (18:08)
[2021-08-28] MEDS ORDERED: ACETAMINOPHEN 1,000 MG/100 ML VIAL IV PRN (18:08)
[2021-08-28] MEDS ORDERED: diphenhydrAMINE Capsule 25 MG CAP PO PRN (18:08)
[2021-08-28] MEDS ORDERED: SOD PHOSPHATE/SOD BIPHOSPHATE ENEMA 132 ML BTL PR PRN (18:08)
[2021-08-28] MEDS ORDERED: NALOXONE HCL 0.4 MG/1 ML VIAL/CARP IV PRN (18:08)
[2021-08-28] MEDS ORDERED: HYDROmorphone INJ 0.5 MG/0.5 ML SYR IV PRN (18:08)
[2021-08-28] MEDS ORDERED: MAGNESIUM HYDROXIDE SUSP 30 ML UDC PO PRN (18:08)
[2021-08-28] MEDS ORDERED: ACETAMINOPHEN 500 MG TAB PO PRN (18:08)
[2021-08-28] MEDS ORDERED: hydrOXYzine HCl 25 MG TAB PO PRN (18:08)
[2021-08-28] MEDS ORDERED: DO NOT ADMINISTER PNEUMOCOCCAL VACCINE PRN (18:08)
[2021-08-28] MEDS ORDERED: ONDANSETRON 4 MG OD TAB PO PRN (18:08)
[2021-08-28] MEDS ORDERED: FAMOTIDINE 20 MG TAB PO PRN (18:08)
[2021-08-28] MEDS ORDERED: DO NOT ADMINISTER FLU VACCINE PRN (18:08)
[2021-08-28] MEDS ORDERED: METOCLOPRAMIDE HCL INJ 5 MG/ML 2 ML VIAL IV PRN (18:08)
--- NOTE | 2021-08-28 20:36 | Anesthesiology Progress Note ---
Date of Service August 28, 2021 Anesthesia Post Procedure Vital Signs Vital Signs: Temp Pulse Pulse Resp BP BP Pulse Ox 08/28/21 20:14 36.4 C L 76 18 121/71 95 08/28/21 19:18 51 L 16 95 08/28/21 19:08 36.5 C 54 L 16 130/81 95 08/28/21 18:41 36.3 C L 53 L 15 126/78 97 08/28/21 18:11 36.5 C 60 15 128/84 95 08/28/21 17:40 36.6 C 52 L 14 137/76 97 08/28/21 17:30 54 L 12 140/96 97 08/28/21 17:20 54 L 13 157/90 H 98 08/28/21 17:10 51 L 14 145/96 H 98 08/28/21 17:00 52 L 14 146/82 H 97 08/28/21 16:50 37.2 C 65 16 160/101 H 96 08/28/21 16:40 90 14 151/105 H 98 08/28/21 16:30 40 L 12 156/86 H 98 08/28/21 16:20 44 L 12 159/87 H 99 08/28/21 16:10 55 L 20 172/89 H 99 08/28/21 16:00 47 L 20 145/84 H 100 08/28/21 15:50 63 14 142/85 H 98 08/28/21 15:40 42 L 12 155/85 H 100 08/28/21 15:30 61 14 132/84 100 08/28/21 15:24 36.3 C L 64 16 137/98 100 08/28/21 13:21 36.6 C 53 L 18 135/71 98 08/28/21 07:06 36.5 C 50 L 16 118/66 97 08/27/21 23:45 36.5 C 75 15 137/79 96 Pain Intensity Neck: Pain Intensity: 6 Transfer of Care Handoff Completed per policy Notes Mental Status: alert / awake / arousable Patient Amnestic to Procedure: Yes Nausea / Vomiting: adequately controlled Pain: adequately controlled Airway Patency, RR, SpO2: stable & adequate BP & HR: stable & adequate Hydration State: stable & adequate Anesthetic Complications: no major complications apparent
[2021-08-28] MEDS ORDERED: BISOPROLOL FUMARATE 5 MG TAB PO SCH (21:00)
[2021-08-28] MEDS ORDERED: hydroCHLOROthiazide 25 MG TAB PO SCH (21:00)
[2021-08-28] MEDS ORDERED: FEXOFENADINE HCL 180 MG TAB PO SCH (21:00)
[2021-08-28] MEDS ORDERED: DOCUSATE SODIUM/SENNA 50/8.6MG TAB PO SCH (21:00)
[2021-08-28] MEDS ORDERED: CHOLECALCIFEROL 1,000 UNITS 25 MCG TAB PO SCH (21:00)
[2021-08-28] MEDS: oxyCODONE HCL IR 5 MG TAB (IMMEDIATE RELEASE) PO PRN (21:09)
[2021-08-29] MEDS: LACTATED RINGER'S 1,000 ML IV SCH ×2 (00:29→01:17)
[2021-08-29] MEDS: MoRPHine SULFATE 2 MG/ML CARP IV PRN ×3 (03:41→12:52)
--- NOTE | 2021-08-29 03:52 | Consultation Report ---
DATE OF CONSULTATION: 08/29/2021. CHIEF COMPLAINT: Bradycardia. HISTORY OF PRESENT ILLNESS: This is a 41-year-old male with past medical history of hypertension, status post cervical fusion surgery. We are consulted for bradycardia. The patient is currently resting comfortably, complains of severe pain at the surgical site. Denies any headache. No blurred visions or double visions. No earache, no runny nose. Has some sore throat from surgery. No cough, no nausea, no chest pain, no shortness of breath, no abdominal pain. Normal bladder movements. Otherwise resting comfortably. ALLERGIES: No known drug allergies. PAST MEDICAL HISTORY: Hypertension. PAST SURGICAL HISTORY: Had lower back surgery and cervical spine surgery, bilateral shoulder surgery, abdominal surgery, right femur surgery, tonsillectomy, and wisdom teeth extraction. MEDICATIONS: The patient is on bisoprolol/hydrochlorothiazide 1 tablet p.o. at bedtime, vitamin D 64812 units p.o. at bedtime, diclofenac sodium 75 mg p.o. at bedtime, Brittany 180 mg p.o. at bedtime, oxycodone 5 mg p.o. q. 6 hours p.r.n., tramadol 50 mg p.o. q. 6 hours p.r.n. FAMILY HISTORY: The patient is adopted. SOCIAL HISTORY: Denies any smoking. Social drinking. No drug use. REVIEW OF SYSTEMS: As per HPI. Rest of the review of systems is negative. PHYSICAL EXAMINATION: GENERAL: The patient is of moderate build, not in acute distress. VITAL SIGNS: Temperature 36.5, pulse 41, respiratory rate 16, blood 129/78, oxygen 97% on 2 liters. HEENT: Atraumatic. Oral mucosa moist. NECK: No JVD. Neck is in collar. CARDIOVASCULAR: S1 and S2 heard. Bradycardia. No murmurs. RESPIRATORY: Normal AP diameter. No accessory muscle use. No wheezing, no crackles. ABDOMEN: Soft, bowel sounds present, nontender, no distention. CENTRAL NERVOUS SYSTEM: Cranial nerves II-XII grossly intact. Power 5/5 in all extremities. EXTREMITIES: No edema, no erythema. ASSESSMENT AND PLAN: This is a 41-year-old male who presents status post cervical fusion surgery and bradycardia. 1. Bradycardia: Will hold his home medication of bisoprolol. Probably postop and from medications. We will change Dilaudid to morphine p.r.n. and toradol prnl. Monitor in med tele. EKG shows sinus bradycardia with nonspecific ST abnormalities at the rate of 37. Will follow repeat EKG in the a.m. Consult cardiology for further recommendations. 2. Hypertension: Will hold his home medication of bisoprolol, continue his hydrochlorothiazide. Will monitor the blood pressure. 3. Deep venous thrombosis prophylaxis and disposition as per orthopedics. Job ID: [id number] [facility] CENTERJanet
[2021-08-29] MEDS: oxyCODONE HCL IR 5 MG TAB (IMMEDIATE RELEASE) PO PRN (05:33)
[2021-08-29] MEDS: POLYETHYLENE (MIRALAX) 17 GM PACK PO SCH ×2 (05:34→11:59)
[2021-08-29 05:59] LABS: Basophils # (auto) 0.01 K/uL (0-0.2); Basophils % (auto) 0.1 %; Eosinophils # (auto) 0.01 K/uL (0-0.5); Eosinophils % (auto) 0.1 %; Hemoglobin 15.1 g/dL (14.0-18.0); Immature Granulocytes # (auto) 0.04 K/uL (0.00-0.02); Immature Granulocytes % (auto) 0.3 %; Lymphocytes # (auto) 1.43 K/uL (1.2-3.4); Lymphocytes % (auto) 9.7 %; Mean Corpuscular Hemoglobin 30.2 pg (25-34); Mean Corpuscular Hgb Conc 34.3 g/dL (32-36); Monocytes # (auto) 1.29 K/uL (0.11-0.59); Monocytes % (auto) 8.7 %; Neutrophils % (auto) 81.1 %; Platelet Count 299 K/uL (130-400); RDW Coefficient of Variation 12.4 % (11.5-14.5); RDW Standard Deviation 39.3 fL (36.4-46.3); White Blood Count 14.78 K/uL (4.8-10.8)
[2021-08-29 06:43] LABS: BUN Creatinine Ratio 10.1 (10-20); Blood Urea Nitrogen 9 mg/dl (7-18); Calcium 9.2 mg/dl (8.5-10.1); Carbon Dioxide 25 mmol/L (21-32); Chloride 105 mmol/L (98-107); Creatinine Clr Calc Pharmacy 122.3 ml/min; Est GFR (African American) 125.4 ml/min; Est GFR (Non-African American) 108.2 ml/min; Glucose 141 mg/dl (70-99); Potassium 3.8 mmol/L (3.5-5.1); Sodium 137 mmol/L (136-145)
[2021-08-29 06:48] LABS: Troponin I < 0.015 ng/ml (0-0.045)
[2021-08-29] MEDS ORDERED: dexAMETHasone 8 MG in SYRINGE 0 ML IV SCH (09:00)
--- NOTE | 2021-08-29 10:52 | Cardiology Consultation ---
Date of Consultation August 29, 2021 Assessment & Plan (1) Sinus bradycardia: (2) HTN (hypertension): (3) Cervical radiculopathy: No evidence of heart block or symptomatic sinus pauses on telemetry. Bradycardia secondary to beta-remy therapy. Beta-remy generally not recommended as first-line therapy for treatment of hypertension in patients unless they have comorbidities including coronary disease, congestive heart failure, or dysrhythmia. Discontinue bisoprolol. Monitor blood pressure. When adequate, restart hydrochlorothiazide. Continue telemetry monitoring. Assess TSH for completeness. No other medication changes at this time. Pain management as per orthopedics and internal medicine. History of Present Illness Reason for Consultation: Bradycardia Requesting Physician: Dr. Payton Attending Physician: Wagner Bar DO History of Present Illness Patient seen and examined at the bedside. Status post orthopedic spinal surgery. Received dose of bisoprolol last evening, 5 mg at 9 PM. Sinus bradycardia recorded overnight. ECG demonstrating marked sinus bradycardia. Patient is asymptomatic. Denies lightheadedness, or dizziness. Bisoprolol prescribed by his primary care physician more than 1 year ago for treatment of hypertension. He was prescribed a combination pill of bisoprolol and hydrochlorothiazide. States he has not taken bisoprolol since last week. Denies history of tachycardia, dysrhythmia, coronary disease, congestive heart failure, diabetes, or rheumatic fever as a child. Currently resting comfortably. Neck discomfort controlled. Tolerating diet and medications. Offers no other concerns/complaints. Allergies Allergy/AdvReac Type Severity Reaction Status Date / Time No Known Allergies Allergy Verified 08/28/21 13:20 Home Medications Medication Instructions Recorded Confirmed Type acetaminophen 500 mg capsule 1,000 mg PO BID 08/07/21 08/27/21 History bisoprolol 5 1 tab PO HS 08/07/21 08/27/21 History mg-hydrochlorothiazide 6.25 mg tablet cholecalciferol (vitamin D3) 125 10,000 unit PO HS 08/07/21 08/27/21 History mcg (5,000 unit) tablet (Vitamin D3) diclofenac sodium 75 mg 75 mg PO HS 08/07/21 08/27/21 History tablet,delayed release fexofenadine 180 mg tablet 180 mg PO HS 08/07/21 08/27/21 History (Brittany Allergy) oxycodone 5 mg tablet 5 mg PO Q6H PRN #20 tab 08/28/21 Rx tramadol 50 mg tablet 50 mg PO Q6H PRN #20 tab 08/28/21 Rx Patient History Medical History Chronic back pain History of COVID-19 Dx 09/2020 > symptoms at time of: mild headache, fatigue, loss of taste/smell > resolved History of panic attacks Last episode 2 years ago Hypertension Lumbar stenosis with neurogenic claudication Surgical History History of abdominal surgery As infant ("valve would not close") History of arthroscopy of left shoulder History of arthroscopy of right shoulder History of lumbar spinal fusion History of open reduction and internal fixation (ORIF) procedure right femur fx repair (+ harware) History of tonsillectomy History of wisdom tooth extraction Family History Other No family history of adverse response to anesthesia Social History Smoking Status: Never smoker Second Hand Exposure: No; Hx Alcohol Use: Yes Alcohol type: beer Hx Substance Use: No Preferred Language: Occitan Communication Ability: Effective Walking Dragline Operator Required: No Beliefs That Will Affect Care: None marital status: Current Living Situation: Family Current Living Situation Comment: Lives with and daughter Feels Safe at Home: Yes Safety Concerns: Feels Safe At This Time Assistive Devices: Brace/Splint/Immobilizer and Oxygen - Continuous Review of Systems Review of Systems: All systems reviewed & are unremarkable except as noted in Subjective Physical Exam Constitutional: well developed and well nourished; no acute distress and not ill appearing Respiratory: normal respiratory effort; no respiratory distress and no labored breathing Auscultation: lungs clear to auscultation bilaterally; no diminished lung sounds, no crackles, no rales, no rhonchi and no wheezes Cardiovascular: Rate/Rhythm: regular rate, regular rhythm and + bradycardic Heart Sounds: normal S1 and normal S2; no gallop, no murmur and no cardiac rub Vessels: radial pulses present; no JVD and no carotid bruit Extremities: no edema Gastrointestinal (Abdomen): Inspection/Auscultation: abdomen normal to inspection; abdomen not distended Percussion/Palpation: abdomen soft; abdomen nontender, no guarding and abdomen not rigid Neurologic: CN's II-XI intact bilaterally; + does not move all extremities and no focal motor deficits Psychiatric: A+Ox3, euthymic affect Results & Data ([facility]) Vital Signs (Past 12 Hours) Vital Signs Temp Pulse Pulse Pulse Resp BP Pulse Ox 08/29/21 09:10 36.8 C 54 L 18 121/71 91 08/29/21 08:21 43 L 08/29/21 07:10 36.8 C 44 L 18 122/68 95 08/29/21 07:00 55 L 14 95 08/29/21 05:10 36.6 C 50 L 14 129/63 97 08/29/21 03:38 39 L 14 98 08/29/21 03:10 36.5 C 44 L 12 139/79 98 08/29/21 03:01 43 L 08/29/21 01:11 36.5 C 41 L 16 129/78 97 08/29/21 00:10 38 L 08/28/21 23:14 36.4 C L 41 L 16 120/68 97 08/28/21 23:00 45 L 08/28/21 22:59 48 L 12 97
--- NOTE | 2021-08-29 11:32 | Discharge Summary ---
Date of Service August 29, 2021 Admission HPI Per Admitting Provider 41 male with marked decline in function with pain and numbness in b/l arms. Principal Diagnosis Cervical disc herniation with radiculopathy Discharge Data Allergies Allergy/AdvReac Type Severity Reaction Status Date / Time No Known Allergies Allergy Verified 08/28/21 13:20 Consultations 08/27/21 17:42 ED Decision to Admit Stat 08/27/21 19:02 Consult Anesthesiology Stat 08/29/21 00:18 Consult Hospitalist Stat 08/29/21 08:00 Consult Cardiology Routine Procedures Performed Operation Date: 08/28/21 09:40 Actual Procedures p C5-C6 Anterior Cervical Discectomy Fusion, Spinal Cord Monitoring - Wagner Bar DO Ordered Studies 08/28/21 12:00 FL cervical 2-3V Routine Hospital Course (1) Cervical radiculopathy: Patient was admitted through the ER with severe neck and bilateral arm pain. The following day underwent anterior cervical discectomy and fusion tolerates well taken to orthopedic floor postoperative. Postop day 1 arm symptoms are markedly improved. Swallowing well. No hoarseness. ANJEL drain decreasing appropriately. Subsequent discharge home. Discharge orders instructions from the chart for further review. Total Time Total Time Spent Total Time Spent (In Minutes): 20 minutes Discharge Plan Discharge Items Patient Disposition: Home - Self-Care Reason For Visit: CEVICAL REDICIALOPATHY Discharge Diagnosis: Cervical disc condition with radiculopathy Activity: As commented below Non-emergency contact: Primary Care Provider Call non-emergency contact if: you have any medication questions Follow-up/Referrals: Wagner Raphael D.O. [Primary Care Provider] - Diet: Regular Addtl Attending Provider Instructions: ACTIVITY RECOMMENDATIONS: SELF CARE INSTRUCTIONS AFTER CERVICAL FUSIONS 1. No smoking. Smoking drastically decreases the chance of a solid fusion. 2. No bending, lifting more than 5 pounds, or twisting (roll like a log when turning in bed). 3. You may shower 3 days after surgery. Thoroughly dry wound. Do not soak in the tub. 4. Cervical collar: Must be worn at all times including sleeping. You may remove the brace only to bath, eat and if you are sitting in a recliner. 5. Please walk as much as you can for exercise. Gradually increase the distance that you walk as your endurance increases. SPECIAL CARE INSTRUCTIONS: VERY IMPORTANT TO READ AND REVIEW A. Do not take any anti-inflammatory medications (i.e. Indocin, Advil, Aspirin, Naprosyn, Aleve, Motrin, etc.) as these may inhibit the chance of a solid fusion. Tylenol is okay to take. B. Your surgical incision has been closed with a cosmetic suture under the skin that will dissolve in about 6 weeks. In 14 days, you can use a pair of clean scissors and cut the suture that is left outside of the skin at the ends of your incision. C. Complications are uncommon, but please contact us if you have any signs or symptoms of: 1. wound infection (fever higher than 102.5 degrees F, redness, separation of wound, drainage, or increasing pain from the incision) 2. blood clots in legs (pain, swelling, redness and warmth in legs) 3. urinary tract infection (fever higher than 102.5 degrees, burning upon urination or increased frequency of urination) 4. nerve problems (inability to walk on your toes or heels, numbness, loss of bowel or bladder control) 5. any other symptoms that concern you. D. Please call the office at if you have any concerns or quest ions about your operation or recovery. MANAGING PAIN AFTER SPINAL SURGERY 1. Narcotic medication is intended for short-term use and will be provided for surgical pain. Surgical pain usually lasts for a period of 4-6 weeks. Narcotic medication includes Percocet, Vicodin, Darvocet, Tylenol #3 or Lortab. 2. Longer-term pain is more appropriately treated with non-narcotic medication such as Tylenol ES. 3. Muscle spasm is not appropriately treated with narcotics. Muscle relaxers such as Soma, Flexeril or Skelaxin can be used along with Tylenol ES. 4. Remember that we all live with some "aches and pains". This is not unusual or uncommon after an injury or as we get older. 5. We will provide appropriate medication within the normal guidelines of their prescribed use. We will also be very cautious and aware of potential abuse and extended duration of patients' medication needs. 6. Please allow 2-3 days to process refills. Prescriptions will not be mailed but must be picked up at the office. FOLLOW UP VISIT: Keep your scheduled follow-up appointment. Any questions, please call the office at . Pending Studies at Discharge: No Stand-Alone Forms: My [facility], Smoking Cessation Medications and DC Order Prescriptions: New tramadol 50 mg tablet 50 mg PO Q6H PRN (Reason: pain, moderate) Qty: 20 RF: 0 oxycodone 5 mg tablet 5 mg PO Q6H PRN (Reason: pain, severe) Qty: 20 RF: 0 Continued bisoprolol-hydrochlorothiazide 5-6.25 mg Tablet 1 tab PO HS RF: 0 fexofenadine [Brittany Allergy] 180 mg Tablet 180 mg PO HS RF: 0 cholecalciferol (vitamin D3) [Vitamin D3] 125 mcg (5,000 unit) Tablet 10,000 unit PO HS RF: 0 acetaminophen 500 mg Capsule 1,000 mg PO BID RF: 0 Discontinued diclofenac sodium 75 mg Tablet,Delayed Release (Dr/Ec) 75 mg PO HS RF: 0 Discharge Orders: Discharge Order (Routine); Ordered 08/29/21 Ordered By: Wagner Bar Admission Data Admit Date/Time: 08/28/21 15:16 Attending Provider: Wagner Bar Admit Provider: Wagner Bar Primary Care Provider: Wagner Raphael Other Providers: Wagner Bar ; Ben Nazario Michael G. ; Nigel Bernard
[2021-08-29] MEDS ORDERED: dexAMETHasone 8 MG in SYRINGE 0 ML IV ONE (12:15)
[2021-08-29 14:05] LABS: T4 Free Thyroxine 1.5 ng/dl (0.8-1.6); Thyroid Stimulating Hormone 0.202 uIu/ml (0.300-4.500)
--- NOTE | 2021-08-29 23:04 | Electrocardiogram Report ---
Test Reason : Blood Pressure : / mmHG Vent. Rate : 037 BPM Atrial Rate : 037 BPM P-R Int : 144 ms QRS Dur : 116 ms QT Int : 470 ms P-R-T Axes : 023 059 062 degrees QTc Int : 368 ms Marked sinus bradycardia ST elevation, consider early repolarization Abnormal ECG When compared with ECG of 09-AUG-2021 11:09, No significant change was found Confirmed by Sourav Casanova ([id number]) on 08/29/2021 11:04:04 PM Referred By: Wagner Bar Confirmed By:Sourav Casanova
--- NOTE | 2021-08-29 23:28 | Electrocardiogram Report ---
Test Reason : Blood Pressure : / mmHG Vent. Rate : 047 BPM Atrial Rate : 047 BPM P-R Int : 172 ms QRS Dur : 104 ms QT Int : 430 ms P-R-T Axes : 011 037 059 degrees QTc Int : 380 ms Sinus bradycardia with sinus arrhythmia ST elevation, consider early repolarization Abnormal ECG When compared with ECG of 29-AUG-2021 00:55, No significant change was found Confirmed by Sourav Casanova ([id number]) on 08/29/2021 11:28:03 PM Referred By: Wagner Bar Confirmed By:Sourav Casanova
== END 2021-08-29 13:59 | disposition home or self-care (01) ==
LOC: ED 16:22 → 3E 19:08 → INTOOBSV 19:08 → 3E 19:35 → 2W 08-29 02:57